=== PATIENT | male | born 1960 | race Asian ===

== ENCOUNTER → 2020-01-31 | Outpatient (CLI) | payer OTHER | END | disposition home or self-care (01) | LOC: RAD 10:17 | PROVIDERS: ATTEND Orthopaedic Surgery | DX: S83.232A Complex tear of medial meniscus, current injury, left knee, initial encounter (principal); M25.462 Effusion, left knee; M94.262 Chondromalacia, left knee; X58.XXXA Exposure to other specified factors, initial encounter; Y93.89 Activity, other specified; Y92.89 Other specified places as the place of occurrence of the external cause; Y99.8 Other external cause status ==

== ENCOUNTER 2020-06-12 06:45 | Day surgery (SDC) | payer OTHER ==
[~2020-06-12] VITALS: Ht 162.6 cm; Wt 70.0 kg
[2020-06-12 07:19] VITALS: BP 118/71
[2020-06-12] MEDS ORDERED: CHLORHEXIDINE 15 ML UDC ONE (07:23)
[2020-06-12] MEDS ORDERED: LIDOCAINE-MPF 1%, 2ML INFIL ONE (07:30)
[2020-06-12] MEDS ORDERED: CHLORHEXIDINE 15 ML UDC MM ONE (07:30)
[2020-06-12] MEDS ORDERED: LACTATED RINGERS 1,000 ML IV SCH (07:30)
[2020-06-12] MEDS ORDERED: FENTANYL PF 100 MCG/2ML ONE (08:13)
[2020-06-12] MEDS ORDERED: MIDAZOLAM 1 MG/ML, 2ML ONE (08:14)
[2020-06-12] MEDS ORDERED: BUPIVACAINE/PF 0.25% ONE (08:16)
[2020-06-12] MEDS ORDERED: MEPERIDINE/PF 25MG/0.5ML IVPush PRN (08:30)
[2020-06-12] MEDS ORDERED: HYDROcodone/APAP 7.5-325MG/15ML UDC PO PRN (08:30)
[2020-06-12] MEDS ORDERED: HYDROmorphone 1 MG/ML, 1ML INJ IVPush PRN (08:30)
[2020-06-12] MEDS ORDERED: PROMETHAZINE 25 MG/ML, 1ML IVPush PRN (08:30)
[2020-06-12] MEDS ORDERED: FENTANYL PF 100 MCG/2ML IV PRN (08:30)
[2020-06-12] MEDS ORDERED: OXYcodone 5 MG/5 ML ORAL.SOL UDC PO PRN (08:30)
[2020-06-12] MEDS ORDERED: NEOSPORIN OINT, 15GM ONE (08:41)
[2020-06-12] MEDS ORDERED: CEFAZOLIN 1,000 MG ONE (09:02)
[2020-06-12] MEDS ORDERED: PROPOFOL 10 MG/ML, 20ML ONE (09:02)
[2020-06-12] MEDS ORDERED: LIDOCAINE-MPF 1%, 2ML ONE (09:02)
[2020-06-12] MEDS ORDERED: BUPIVACAINE 0.25% INFIL ONE (09:29)
[2020-06-12] MEDS ORDERED: ONDANSETRON 2MG/ML, 2ML IV PRN (10:00)
[2020-06-12] MEDS ORDERED: HYDROcodone/APAP 5/325 TABLET PO PRN (10:00)
== END 2020-06-12 12:15 | disposition home or self-care (01) ==
LOC: OUT 06:45
PROVIDERS: ATTEND Urology
DX: N47.1 Phimosis (principal); Z20.828 Contact with and (suspected) exposure to other viral communicable diseases; Z72.89 Other problems related to lifestyle
CPT/HCPCS: 54150; 87635; J0690; J2250; J2704; J3010; J7120